=== PATIENT | female | born 1985 | race Two or more races ===

== ENCOUNTER 2019-02-24 09:35 | Inpatient (IN) | payer OTHER ==
[2019-02-24] MEDS ORDERED: PROMETHAZINE HCL 25 MG/1 ML VIAL IVPUSH ONE (10:21)
[2019-02-24] MEDS ORDERED: BUTORPHANOL TARTRATE 1 MG/ML VIAL IVPB ONE (10:21)
--- NOTE | 2019-02-24 10:25 | HP ---
Past Medical History - Admission Chief Complaint: SROM History of Present Illness: 34yo @ 40.4wks by LMP/sono here with SROM 9AM, irreg ctx started at 9pm. No VB. +FM Preg uncomplicated, GBS neg. PNC at [address] H/O 2013 History Source: Patient Limitations to Obtaining History: No Limitations - Past Medical History MEDICINE WORKER: No: Alzheimer's, CVA, Dementia, Migraine, Multiple Sclerosis, Peripheral Neuropathy, Parkinson's, Seizure, Syncope, TIA, Vertigo, Other Pulmonary: No: Asthma, Bronchitis, Cancer, COPD, O2 Dependent, Pneumonia, Previously Intubated, Pulmonary Embolus, Pulmonary Fibrosis, Sleep Apnea, Other Gastrointestinal: No: Ascites, Cancer, Constipation, Crohn's Disease, Diverticulitis, Diverticulosis, Esophageal Varices, Gastritis, GERD, GI Bleed, Hemorrhoids, Hiatal Hernia, Inflamatory Bowel Disease, Irritable Bowel Disease, Pancreatitis, Peptic Ulcer Disease, Ulcerative Colitis, Other Hepatobiliary: No: Cirrhosis, Cholelithiasis, Cholecystitis, Choledocholithiasis , Hepatitis A, Hepatitis B, Hepatitis C, Other Reproductive: No: Ectopic , Endometriosis, Fibroids, PID, Polycystic Ovary Syndrome, Postmenopausal, Other ...: 2 ...Para: 1 ...Term: 1 ...: 0 ...Spon : 0 ...Induced : 0 ...EDC by Dates: 02/20/19 Heme/Onc: Yes: Anemia - Past Surgical History Hx Myomectomy: No Hx Transabdominal Cerclage: No - Smoking History Have you smoked in the past 12 months: No - Alcohol/Substance Use Hx Alcohol Use: No History of Substance Use: reports: None - Social History Usual Living Arrangement: Yes: With Significant Other History of Recent Travel: No Home Medications - Allergies Allergies/Adverse Reactions: Allergies Allergy/AdvReac Type Severity Reaction Status Date / Time No Known Allergies Allergy Verified 02/24/19 10:58 - Home Medications Home Medications: Ambulatory Orders Terconazole 0.4 applic PV HS 02/24/19 Review of Systems - Review of Systems Constitutional: denies: No Symptoms, Chills, Diaphoresis, Fever, Lethargy, Loss of Appetite, Malaise, Night Sweats, Unintentional Wgt. Loss, Weakness, Other Cardiovascular: denies: No Symptoms, Chest Pain, Edema, Palpitations, Shortness of Breath, Other Respiratory: denies: No Symptoms, Cough, Exercise Intolerance, Hemoptysis, Orthopnea, PND, Snoring, SOB, SOB on Exertion, Wheezing, Other Gastrointestinal: denies: No Symptoms, Abdominal Pain, Bloating, Constipation, Diarrhea, Dysphagia, Indigestion, Melena, Nausea, Rectal Bleeding, Vomiting, Vomiting Blood, Other Physical Exam - Maternity Constitutional: Yes: Well Nourished, No Distress, Calm Eyes: Yes: WNL, Conjunctiva Clear, EOM Intact HENT: Yes: WNL, Atraumatic, Normocephalic Neck: Yes: WNL, Supple, Trachea Midline Cardiovascular: Yes: WNL, Regular Rate and Rhythm Breast(s): Yes: WNL - Abdominal Exam/OB Number of Fetuses: Single Presentation: Vertex Contractions: Yes Regularity: Irregular Intensity: Unaware Monitor Mode: External Category: I Accelerations: Non-Uniform Decelerations: None - Vaginal Exam/OB Vaginal Bleediing: No Dilatation (cm): 1 Effacement (%): 50 Amniotic Membrane Status: Ruptured Nitrazine Test: Positive Amniotic Fluid: Yes: Clear Presentation: Vertex/Position Station: -3 - Physical Exam Edema: No Problem List - Problems (1) SROM (spontaneous rupture of membranes) Code(s): QEA1223 - Assessment/Plan 34yo @ 40.4wks here with SROM, early labor Admit to L&D IVFs EFM/K[place]elon, Cat I tracing Pitocin augmentation/induction Stadol/epidural prn Anticipate KELSI Alford MD
[2019-02-24] MEDS ORDERED: OXYTOCIN 30 UNITS in 0.9% NS 30 UNIT/500 ML INFUS.BAG IVPB SCH (10:30)
[2019-02-24] MEDS ORDERED: ELECTROLYTE-148 SOLN 1,000 ML IV SCH (10:30)
[2019-02-24 10:33] LABS: BASO % 0.9 % (0-2.0); EOS % 0.1 % (0-4.5); HEMATOCRIT 32.9 % (32.4-45.2); HEMOGLOBIN 10.7 GM/dL (10.7-15.3); MCH 27.1 pg (25.7-33.7); MCHC 32.6 g/dl (32.0-36.0); MEAN CELL VOLUME 83.2 fl (80-96); MEAN PLT VOLUME 10.2 fl (7.5-11.1); MONO % 3.8 % (3.8-10.2); NEUT % 80.2 % (42.8-82.8); PLATELET COUNT 145 K/MM3 (134-434); RBC 3.95 M/mm3 (3.60-5.2); RDW 16.6 % (11.6-15.6); WHITE BLOOD COUNT 9.1 K/mm3 (4.0-10.0)
[2019-02-24 10:48] LABS: INR 0.94 (0.83-1.09); PROTHROMBIN TIME (PATIENT) 11.1 SEC (9.7-13.0)
[2019-02-24 10:59] LABS: CALCIUM 8.6 mg/dL (8.5-10.1); CREATININE 0.6 mg/dL (0.55-1.3); POTASSIUM 3.7 mmol/L (3.5-5.1)
[2019-02-24 11:21] VITALS: BMI 23.8
--- NOTE | 2019-02-24 13:06 | PN ---
Progress Note, Labor Vaginal Exam #1 Labor Exam Date: 02/24/19 Labor Exam Time: 13:05 Heart Rate (range): Cat I Dilatation: 3 Effacement (%): 70 Amniotic Membrane Status: Ruptured Presentation: Vertex/Position Station: -2 Remarks: Comfortable on pitocin (4mu) Continue pitocin Anticipate CORY Alford MD
[2019-02-24] MEDS ORDERED: FENTANYL/BUPIVACAINE/NS/PF - PCEA - 50 ML DISP.SYRIN EP ONE (17:05)
[2019-02-24] MEDS ORDERED: NALOXONE HCL 0.4 MG/ML VIAL IVPUSH PRN (17:56)
[2019-02-24] MEDS ORDERED: FENTANYL/BUPIVACAINE/NS/PF - PCEA - 50 ML DISP.SYRIN EP SCH (18:00)
[2019-02-24] MEDS ORDERED: OXYTOCIN 20 UNITS in 0.9% NS 20 UNIT/1,000 ML INFUS.BAG IV ONE (19:31)
[2019-02-24] MEDS ORDERED: LIDOCAINE HCL 1% PRESERVATIVE FREE - 30ML VIAL ONE (19:31)
--- NOTE | 2019-02-24 19:55 | PN ---
Progress Note (short form) - Note Progress Note: cx full 100 vx +1 , mr, clear , fhr cat 1
[2019-02-24] MEDS ORDERED: BENZOCAINE 28 GM HEMORRHOIDAL OINTMENT TP PRN (21:09)
[2019-02-24] MEDS ORDERED: WITCH HAZEL 50% (TUCKS) 40 PAD/JAR PAD TP PRN (21:09)
[2019-02-24] MEDS ORDERED: METHYLERGONOVINE MALEATE 0.2 MG/1 ML AMP IM PRN (21:09)
[2019-02-24] MEDS ORDERED: BENZOCAINE 20% 57 GM BOTTLE TP PRN (21:09)
[2019-02-24] MEDS ORDERED: BISACODYL 10 MG SUPP.RECT RC PRN (21:09)
--- NOTE | 2019-02-24 21:12 | PN ---
Delivery - Delivery Vaginal Delivery: No Problems, Spontaneous Type of Anesthesia: Epidural (head delivered ZEESHAN, cord around neck 2, clamped with demetria clamp and cut, ant. post, shoulder with no difficulty , baby girl 9/o , ebl 300, no complication) Episiotomy/Laceration: None Delivery, Single - [place] Feeding Plan Initial Plan: Exclusive throughout hospitalization
[2019-02-24] MEDS ORDERED: D5W-LR W/ 20 UNITS OXYTOCIN 20 UNIT/1,000 ML INFUS.BAG IV SCH (21:15)
[2019-02-24] MEDS: FERROUS SO4 325 MG TABLET (FP) PO SCH (23:16)
[2019-02-24] MEDS: IBUPROFEN 600 MG TABLET (FP) PO PRN (23:23)
[2019-02-24] MEDS: ACETAMINOPHEN 325 MG TABLET (FP) PO PRN (23:24)
[2019-02-25 06:28] LABS: BASO % 0.3 % (0-2.0); EOS % 0.1 % (0-4.5); HEMATOCRIT 26.3 % (32.4-45.2); HEMOGLOBIN 8.5 GM/dL (10.7-15.3); LYMPH % 15.8 % (8-40); MCH 27.2 pg (25.7-33.7); MCHC 32.2 g/dl (32.0-36.0); MEAN CELL VOLUME 84.3 fl (80-96); MEAN PLT VOLUME 10.2 fl (7.5-11.1); MONO % 4.6 % (3.8-10.2); NEUT % 79.2 % (42.8-82.8); PLATELET COUNT 121 K/MM3 (134-434); RBC 3.12 M/mm3 (3.60-5.2); RDW 16.7 % (11.6-15.6); WHITE BLOOD COUNT 12.5 K/mm3 (4.0-10.0)
[2019-02-25] MEDS: FERROUS SO4 325 MG TABLET (FP) PO SCH ×2 (08:27→17:11)
[2019-02-25] MEDS: PRENATAL VITAMINS W/ FOLIC ACID TABLET (FP) PO SCH (09:18)
[2019-02-25] MEDS ORDERED: SENNOSIDES/DOCUSATE COMBO (SENNA PLUS) TABLET (UD) PO PRN (22:00)
[2019-02-26] MEDS: ACETAMINOPHEN 325 MG TABLET (FP) PO PRN ×2 (00:32→11:05)
[2019-02-26] MEDS: IBUPROFEN 600 MG TABLET (FP) PO PRN ×2 (00:32→11:04)
--- NOTE | 2019-02-26 08:51 | DS ---
Physical Examination Vital Signs: Vital Signs Temperature 98.7 F 02/25/19 21:01 Pulse Rate 80 02/25/19 21:01 Respiratory Rate 18 02/25/19 21:01 Blood Pressure 111/66 02/25/19 21:01 O2 Sat by Pulse Oximetry (%) 100 02/24/19 21:30 Constitutional: Yes: Well Nourished Eyes: Yes: WNL HENT: Yes: Atraumatic, Normocephalic. No: Nasal Congestion Neck: Yes: Supple Cardiovascular: Yes: WNL Respiratory: Yes: Regular Gastrointestinal: Yes: WNL, Soft (fundus is firm) ...Rectal Exam: Yes: Other (deferred) Renal/: Yes: Other (deferred) Breast(s): Yes: Other (deferred) Musculoskeletal: Yes: WNL Extremities: Yes: WNL Edema: LLE: Trace, RLE: Trace Integumentary: Yes: WNL Neurological: Yes: Alert, Oriented Labs: CBC, BMP 02/25/19 06:00 02/24/19 10:15 Discharge Summary Reason For Visit: LABOR ADMISSION Current Active Problems SROM (spontaneous rupture of membranes) (Acute) Procedures: Principal: vaginal delivery Condition: Stable - Instructions Diet, Activity, Other Instructions: regular diet, PP precautions discussed with patient Referrals: Saji Stuart MD [Staff Physician] - Disposition: HOME - Home Medications Comprehensive Discharge Medication List: Ambulatory Orders Terconazole 0.4 applic PV HS 02/24/19 Physical activity Resume your normal everyday activity as tolerated no heavy lifting or exercise until seen by your surgeon. You may walk unlimited galen of and climb stairs. You may resume driving the car when you feel safe and comfortable behind the wheel. No sexual activity as instructed. Wound care If you have a bandage, leave it on, and keep dry for 48-72 hours. After that time discard the outer bandage. If they are tapes on the skin under the out of bandage leave them in place. They will peel off in the next 7 to 10 days. Do Not Peel them off. You may shower the day after surgery. If there are tapes present on the skin, you may shower over them. Diet There are no dietary restrictions. Eat healthy, high-fiber foods. Drink 6 to 8 glasses of liquid each day. This will assist in keeping your bowels are regular. Pain management You may take Tylenol or acetaminophen or Ibuprofen (for example, Motrin, Advil etc.) from my pain prescription medication is ordered should be taken as prescribed for moderate to severe pain. Call MD for any of the following: Severe pain not relieved by medication Fever of 101 or higher Excessive bleeding or drainage on dressing Inability to urinate
[2019-02-26] MEDS: FERROUS SO4 325 MG TABLET (FP) PO SCH (09:00)
[2019-02-26] MEDS: PRENATAL VITAMINS W/ FOLIC ACID TABLET (FP) PO SCH (09:00)
[2019-02-26 09:04] VITALS: BP 113/85; PULSE 73; TEMP 98.4
== END 2019-02-26 12:35 | disposition home or self-care (01) | DRG 560 ==
LOC: JLDR 09:35 → J3W 21:50
PROVIDERS: ADMIT Obstetrics & Gynecology; ATTEND Obstetrics & Gynecology
PROC: 10E0XZZ Delivery of Products of Conception, External Approach (ICD-10-PCS; principal; 2019-02-24)
DX: O48.0 Post-term pregnancy (principal); O69.81X0 Labor and delivery complicated by cord around neck, without compression, not applicable or unspecified; Z3A.40 40 weeks gestation of pregnancy; Z37.0 Single live birth
CPT/HCPCS: 36415; 59409; 80048; 85025; 85610; 85730; 86593; 86850; 86900; 86901

== ENCOUNTER 2019-04-29 05:07 | Day surgery (SDC) | payer OTHER ==
[2019-04-28 10:22] VITALS: BMI 16.9
[2019-04-29] MEDS ORDERED: ROCURONIUM BROMIDE 50 MG/5 ML SYRINGE ONE (08:39)
[2019-04-29] MEDS ORDERED: DEXAMETHASONE SOD PHOSPHATE 4 MG/1 ML VIAL ONE (08:39)
[2019-04-29] MEDS ORDERED: PROPOFOL 20 ML ONE ×2 (08:39)
[2019-04-29] MEDS ORDERED: MIDAZOLAM HCL 2 MG/2 ML SINGLE DOSE VIAL ONE (08:40)
--- NOTE | 2019-04-29 09:05 | HP ---
Admitting History and Physical - Primary Care Physician PCP: Saji Stuart - Admission Chief Complaint: multiparous female desiring sterilization History Source: Patient Limitations to Obtaining History: No Limitations - Past Medical History AREA ATTENDANT: No: Alzheimer's, CVA, Dementia, Migraine, Multiple Sclerosis, Peripheral Neuropathy, Parkinson's, Seizure, Syncope, TIA, Vertigo, Other Cardiovascular: No: AFIB, Aneurysm, Aortic Insufficiency, Aortic Stenosis, CAD, CHF, Deep Vein Thrombosis, HTN, Hyperlipdemia, IN, Mitral Insufficiency, Mitral Stenosis, Murmur, Pulmonary Hypertension, Other Pulmonary: No: Asthma, Bronchitis, Cancer, COPD, O2 Dependent, Pneumonia, Previously Intubated, Pulmonary Embolus, Pulmonary Fibrosis, Sleep Apnea, Other Gastrointestinal: No: Ascites, Cancer, Constipation, Crohn's Disease, Diverticulitis, Diverticulosis, Esophageal Varices, Gastritis, GERD, GI Bleed, Hemorrhoids, Hiatal Hernia, Inflamatory Bowel Disease, Irritable Bowel Disease, Pancreatitis, Peptic Ulcer Disease, Ulcerative Colitis, Other Hepatobiliary: No: Cirrhosis, Cholelithiasis, Cholecystitis, Choledocholithiasis , Hepatitis A, Hepatitis B, Hepatitis C, Other Reproductive: No: Ectopic , Endometriosis, Fibroids, PID, Polycystic Ovary Syndrome, Postmenopausal, Other ...LMP Comment: had baby 2months ago Heme/Onc: Yes: Anemia. No: B12 Deficiency, Bleeding Disorder, Cancer, Current Chemotherapy, Current Radiation Therapy, Hemochromatosis, Hypercoaguable State, Myeloproliferative Synd, Sickle Cell Disease, Sickle Cell Trait, Thrombocytopenia, Other Infectious Disease: No: AIDS, C-Diff, Herpes Zoster, HIV, MRSA, STD's, Tuberculosis, VREF, Other Psych: No: Addictions, Anxiety, Bipolar, Depression, Panic, Psychosis, Schizophrenia, Other Rheumatology: No: Fibromyalgia, Gout, Lupus, Rheumatoid Arthritis, Sarcoidosis, Vasculitis, Other ENT: No: Allergic Rhinitis, Sinusitis, Other Endocrine: No: Piyush's Disease, Dallas's Disease, Diabetes Insipidus, Diabetes Mellitus, Hyperparathyroidism, Hyperthyroidism, Hypothyroidism, Osteopenia, SIADH, Other Dermatology: No: Basal Cell, Cellulitis, Eczema, Melanoma, Psoriasis, Squamous Cell, Other - Past Surgical History Past Surgical History: No: None, AAA Repair, AICD, Amputation, Appendectomy, Arthrosocopy, AV Fistula/Graft, Bariatric Surgery, Breast Biopsy, Bypass, CABG, Carotid Endarterectomy, Cataract Removal, Cholecystectomy, Colectomy, Colonoscopy, Colostomy, Craniotomy, , Cystectomy, Hernia Repair, Hysterectomy, Ileal Conduit, Ileosotomy, Joint Replacement, Kidney Transplant, Laminectomy, Liver Transplant, Mastectomy, Nephrectomy, Oopherectomy, Orchiectomy, Permanent Pacemaker, Prostatectomy, Splenectomy, Stent, Thoracotomy , TURP, Tonsillectomy, Tubal Ligation, Upper Endoscopy, Valve Replacement, Vasectomy, Vein Stripping/Ligation - Advance Directives Advance Directives: No: Living Will, Health Care Proxy, DNR, Organ Donor, Tissue Donor, MOLST - Smoking History Smoking history: Never smoked Have you smoked in the past 12 months: No - Alcohol/Substance Use Hx Alcohol Use: No History of Substance Use: reports: None - Social History History of Recent Travel: No Home Medications - Allergies Allergies/Adverse Reactions: Allergies Allergy/AdvReac Type Severity Reaction Status Date / Time No Known Drug Allergies Allergy Verified 04/29/19 07:52 - Home Medications Home Medications: Ambulatory Orders Iron 36 mg PO BID 04/28/19 Family Disease History - Family Disease History Family History: Unremarkable Review of Systems Unable to obtain ROS, reason: none Findings/Remarks: anxious regarding surgery - Review of Systems Constitutional: denies: No Symptoms, Chills, Diaphoresis, Fever, Lethargy, Loss of Appetite, Malaise, Night Sweats, Unintentional Wgt. Loss, Weakness, Other Eyes: denies: No Symptoms, Blind Spots, Blurred Vision, Double Vision, Eye Pain , Floaters, Photophobia, Recent Change in Vision, Other HENT: denies: No Symptoms, Difficult Swallowing, Ear Discharge, Ear Pain, Epistaxis, Gingival Bleeding, Hearing Loss, Mouth Swelling, Nasal Congestion, Ocular Prosthesis, Throat Pain, Toothache, Ringing in Ears, Other Neck: denies: No Symptoms, Decreased ROM, Lumps, Pain on Movement, Stiffness, Swollen Glands, Tenderness, Other Cardiovascular: denies: No Symptoms, Chest Pain, Edema, Palpitations, Shortness of Breath, Other Respiratory: denies: No Symptoms, Cough, Exercise Intolerance, Hemoptysis, Orthopnea, PND, Snoring, SOB, SOB on Exertion, Wheezing, Other Gastrointestinal: denies: No Symptoms, Abdominal Pain, Bloating, Constipation, Diarrhea, Dysphagia, Indigestion, Melena, Nausea, Rectal Bleeding, Vomiting, Vomiting Blood, Other Genitourinary: denies: No Symptoms, Burning, Discharge, Dysuria, Flank Pain, Frequency, Hematuria, Incontinence, Lesions, Menses, Pain, Testicular Mass, Testicular Pain, Testicular Swelling, Urgency, Vaginal Bleeding, Other Breasts: denies: No Symptoms Reported, See HPI, Breast Implants, Discharge from Nipple, Lumps, Pain, Skin Changes, Other Musculoskeletal: denies: No Symptoms, Back Pain, Crepitus, Decreased ROM, Extremity Pain, Joint Pain, Joint Swelling, Muscle Pain, Muscle Cramps, Muscle Weakness, Other Integumentary: denies: No Symptoms, Blister, Bruising, Change in Color, Eczema, Erythema, Incision, Lesions, Lump, Pallor, Pruritis, Rash, Wound, Other Neurological: denies: No Symptoms, Change in LOC, Change in Speech, Confusion, Dizziness, Headache, Incoordination, Numbness, Parasthesia, Pre-Existing Deficit , Seizure, Syncope, Tremors, Unsteady Gait, Weakness, Other Endocrine: denies: No Symptoms, Excessive Sweating, Flushing, Increased Hunger, Increased Thirst, Intolerance to Cold, Intolerance to Heat, Unexplained Weight Gain, Unexplained Weight Loss, Other Hematology/Lymphatic: denies: No Symptoms, Easily Bruised, Excessive Bleeding, Swollen Glands, Other Psychiatric: denies: No Symptoms, Altered Sleep Pattern, Anxiety, Depression, Hallucinations, Panic, Paranoia, Suicidal, Other Physical Examination Vital Signs: Vital Signs Temperature 97.8 F 04/29/19 07:50 Pulse Rate 61 04/29/19 07:50 Respiratory Rate 20 04/29/19 07:50 Blood Pressure 101/61 04/29/19 07:50 O2 Sat by Pulse Oximetry (%) 99 04/29/19 07:49 Constitutional: Yes: Well Nourished Eyes: Yes: WNL HENT: Yes: WNL Neck: Yes: Supple Cardiovascular: Yes: Regular Rate and Rhythm Respiratory: Yes: Regular Gastrointestinal: Yes: Normal Bowel Sounds, Soft ...Rectal Exam: Yes: Deferred Renal/: Yes: WNL Breast(s): Yes: Other Musculoskeletal: Yes: WNL Extremities: Yes: WNL Edema: No Integumentary: Yes: WNL Wound/Incision: Yes: Well Approximated Neurological: Yes: Alert, Oriented ...Motor Strength: WNL Psychiatric: Yes: Alert, Oriented Labs: reviewed Assessment/Plan Informed consent obtained and all questions answered -proceed with scheduled surgery
[2019-04-29] MEDS ORDERED: BUPIVACAINE HCL/PF (5 MG/ML) 30 ML VIAL IJ ONE ×2 (09:40)
[2019-04-29] MEDS ORDERED: NEOSTIGMINE METHYLSULFATE 0.5 MG/ML - 10 ML MDV ONE (10:10)
[2019-04-29] MEDS ORDERED: GLYCOPYRROLATE 0.2 MG/1 ML VIAL ONE (10:10)
--- NOTE | 2019-04-29 10:41 | SURG ---
Surgery Stockroom Clerk Note Stockroom Clerk: Levy Dotson PA-C Date of Service: 04/29/19 Diagnosis: Elective sterilization Procedure: Laproscopic bilateral salpingectomy I was present for the entirety of the operative procedure. For further detail, please refer to operative report. Visit type - Case Type Case Type: Scheduled - Emergency Emergency Visit: No - New patient This patient is new to me today: Yes Date on this admission: 04/29/19 - Critical Care Critical Care patient: No
--- NOTE | 2019-04-29 10:56 | OP ---
Operative Note - Note: Operative Date: 04/29/19 Pre-Operative Diagnosis: multiparity Operation: laparaoscopic bilateral salpingectomy Findings: see dictation, Dic # [id number] Implants: none Post-Operative Diagnosis: Same as Pre-op Surgeon: Saji Stuart Anesthesia: General Specimens Removed: bilateral fallopian tubes Estimated Blood Loss (mls): 5 Drains, Volume Out (mls): 400 Operative Report Dictated: Yes
[2019-04-29] MEDS ORDERED: ONDANSETRON 4 MG/2 ML VIAL IVPUSH PRN (11:15)
[2019-04-29] MEDS ORDERED: LACTATED RINGERS SOLUTION 1,000 ML IV SCH (11:15)
[2019-04-29] MEDS ORDERED: oxyCODONE HCL 5 MG TABLET PO PRN (11:15)
[2019-04-29 13:18] VITALS: BP 110/71; PULSE 64; TEMP 97.9
--- NOTE | 2019-04-30 09:09 | OP ---
DATE OF OPERATION: 04/29/2019 PREOPERATIVE DIAGNOSIS: A 34-year-old multiparous female desires sterilization, properly counseled and opted for bilateral salpingectomy. POSTOPERATIVE DIAGNOSIS: A 34-year-old multiparous female desires sterilization , properly counseled and opted for bilateral salpingectomy. PROCEDURE: Laparoscopic bilateral salpingectomy. SURGEON: Diane Rodriguez MD LEATHER ETCHER: Levy Dotson PA-C ANESTHESIA: General. ESTIMATED BLOOD LOSS: Minimal. INTRAVENOUS FLUIDS: Per Anesthesia. URINE: Approximately 400 of clear urine. COMPLICATIONS: None. SPECIMEN: Bilateral tubes. FINDINGS: Normal anterior abdominal wall anatomy. Intraabdominal findings were consistent with normal anatomy. Bilateral tube and ovaries appeared normal. DESCRIPTION OF PROCEDURE: The patient was taken to the operating room where anesthesia was found to be adequate. She was then prepped and draped in the normal sterile fashion. Urinary García catheter was placed atraumatically. Appropriate timeout took place. Metal retractors were utilized to visualize the anterior aspect of the cervix which was grasped with an atraumatic tenaculum. The HUMI manipulator was placed to a depth of 8 cm without difficulty. Balloon tip was inflated. All other instruments were removed from the vagina. Attention then was directed to the anterior abdominal wall. A small vertical infraumbilical incision was made with the scalpel following local anesthetic. The subcutaneous tissues were dissected out bluntly, and the underlying fascia was elevated with Carolyn clamps. The fascia was transected, and the peritoneum entered bluntly. The Gaudencio trocar was placed and insufflation media activated. Inspection with the scope revealed adequate placement and no evidence of visceral trauma or active bleeding at the point of entry. Intraabdominal inspection as previously mentioned. A 5-mm left lower quadrant trocar was placed under constant visualization without difficulty. This was followed by a right lower quadrant 1 in the same fashion. The left fallopian tube was identified by being followed to its fimbriated end, elevated away from any surrounding viscera, and the LigaSure instrument was used to cauterize the mesosalpinx immediately adjacent to the tube. The entire tube was excised, and the surgical stump was noted to be hemostatically stable. Attention then was directed to the contralateral fallopian tube which underwent the exact same procedure just described. An Endobag was introduced through the infraumbilical port, and the 2 fallopian tube specimens were placed in the bag without difficulty. They were sent together to pathology. Secondary inspection of the surgical field revealed once again excellent hemostasis. The right lower quadrant port was removed under constant visualization, and no active bleeding was noted. The same happened on the contralateral side. All insufflation media was evacuated from the abdomen. The infraumbilical port was removed, and the fascial incision was obliterated by tying previously placed 0 Vicryl anchoring stitches. No fascial defect was noted following surgical and digital inspection. The skin incisions were approximated with 3-0 Monocryl. Excellent hemostasis noted. The patient in stable condition going to the recovery room. Instrument count reported correct x2 by the staff. DIANE RODRIGUEZ MD [id number] MTDD
--- NOTE | 2019-05-04 19:37 | PATH ---
Surgical Pathology Report Patient Name: KHALIDA FORBES [facility]. Rec. #: [id number] /Age/Gender: 1985 (Age: 34) / F Account: [id number] Location: [facility] SURGICAL Taken: 04/29/2019 Received: 04/29/2019 Reported: 05/04/2019 Physicians: Saji Stuart MD Specimen(s) Received BILATERAL FALLOPIAN TUBES Clinical History Multiparity Final Diagnosis FALLOPIAN TUBES, BILATERAL, LAPAROSCOPIC SALPINGECTOMY: TWO (2) FALLOPIAN TUBES WITH MILD CHRONIC INFLAMMATION (INCLUDING FIMBRIATED END AND FULL LUMINAL PORTION). Electronically Signed Joelle Tejada M.D. Gross Description Received in formalin labeled "bilateral fallopian tubes," are 2 undesignated, fimbriated fallopian tubes measuring 4.5 and 5.0 cm in length. The outer surfaces are echevarria-pink and smooth. Sectioning reveals unremarkable lumen. Billing Adjudicator sections are submitted in 4 cassettes as follows: 1-shorter fallopian tube fimbria; 2-cross sections of shorter fallopian tube; 3-longer fallopian tube fimbria; 4-cross sections of longer fallopian tube. [facility]/04/29/2019
== END 2019-04-29 12:50 | disposition home or self-care (01) ==
LOC: JASU-SURG 05:07
PROVIDERS: ATTEND Student in an Organized Health Care Education/Training Program
PROC: 0U574ZZ Destruction of Bilateral Fallopian Tubes, Percutaneous Endoscopic Approach (ICD-10-PCS; principal; 2019-04-29 09:00)
DX: Z30.2 Encounter for sterilization (principal)
CPT/HCPCS: 84703; 88302-TC; 94760